=== PATIENT | female | born 1935 | race Caucasian/White ===

== ENCOUNTER 2016-12-23 18:12 | Inpatient (IN) | payer MEDICARE, BC ==
[~2016-12-23] VITALS: Ht 162.6 cm; Wt 82.0 kg
--- NOTE | 2016-12-29 08:58 | CO ---
ADMIT: 12/23/2016 RM/LOC: 520 [facility] MR#: [id number] [address] [address] ELMER ZAMBRANO [address] [place] [address] Consultation SEX: F AGE: 81 : 1935 DATE OF CONSULTATION: 12/23/2016 ATTENDING PHYSICIAN: Cecil Braden CONSULTING PHYSICIAN: Flynn Rose MD REASON FOR CONSULTATION: Right hip fracture. She also has some right foot pain. HISTORY OF PRESENT ILLNESS: The patient is an 81-year-old female, who was on a step ladder, fell, injuring her right ankle and right hip. She was seen in the Emergency Department. X-rays were taken of the right hip. She has a displaced femoral neck fracture. No x-rays done of the ankle or foot. The patient states that she has pain in the right foot, really none in the ankle. Denies any other injuries during the fall. PAST MEDICAL HISTORY: Significant for some hypothyroidism, hypertension, and history of C. diff. MEDICATIONS: Please see the medication list. ALLERGIES: TO CODEINE. SOCIAL HISTORY: The patient denies alcohol or tobacco use. Lives here in [place]. She works at the hospital as a volunteer. REVIEW OF SYSTEMS: Noncontributory. PHYSICAL EXAMINATION: HEENT, HEART, LUNGS, AND ABDOMEN: As per Dr. Smallwood's evaluation. MUSCULOSKELETAL: Examination of right lower extremity does have some shortening and external rotation of the lower extremity. Pain with any attempted range of motion of the hip. She is able to move her ankle well and wiggle her toes. Otherwise, distally neurovascularly intact. No real tenderness to palpation about the ankle but she does complain of some tenderness over the lateral aspect of the foot over the 5th metatarsal. X-RAYS: X-rays of the hip were performed, showed a displaced femoral neck fracture. Just some dvaw-kj-gzzwdkvk degenerative changes. ADMIT: 12/23/2016 RM/LOC: 520 [facility] MR#: [id number] [address] [address] ELMER ZAMBRANO [address] [place] [address] Consultation SEX: F AGE: 81 : 1935 No x-rays obtained of the foot. We will go ahead and get some of these tonight. ASSESSMENT: Right femoral neck fracture and right foot injury. No x-rays done at this time. PLAN: Plan is to take her to the operating room tomorrow for a right hip bipolar. We discussed the procedure as well as risks and benefits with the patient and family. Questions were answered and she agreed to proceed. We will get some x-rays of the foot to evaluate this further as well. Dr. Smallwood is seeing the patient for medical clearance as well. Flynn Rose MD/ tiana JOB #: [id number] CC: Cecil Braden, Attending Physician Cecil Braden, Family Physician
--- NOTE | 2016-12-29 08:58 | OR ---
ADMIT: 12/23/2016 RM/LOC: 520 [facility] MR#: [id number] [address] [address] ELMER ZAMBRANO [address] [place] [address] Operative/Delivery Room Report SEX: F AGE: 81 : 1935 SURGERY DATE: 12/24/2016 SURGEON: Flynn Rose MD PREOPERATIVE DIAGNOSES: 1. Right displaced femoral neck fracture. 2. Right foot nondisplaced fifth metatarsal fracture. POSTOPERATIVE DIAGNOSES: 1. Right displaced femoral neck fracture. 2. Right foot nondisplaced fifth metatarsal fracture. PROCEDURE: 1. Right hip bipolar hemiarthroplasty. 2. Non-operative treatment right fifth metatarsal fracture. FOOD AND BEVERAGE INTERN: MOISE Young ANESTHESIA: General. ESTIMATED BLOOD LOSS: Approximately 250 mL. COMPLICATIONS: None. CONDITION: Stable to recovery room. INDICATIONS: The patient is an 81-year-old female, who was at home yesterday on a step stool, fell injuring her right foot and right hip. She was seen in the Emergency Department. X-rays were taken of the hip. This did show a displaced femoral neck fracture. Just some ctrf-ov-cgecseti degenerative changes. She is also complaining of foot pain. I did not do x-rays in the emergency room. We did some x-rays while she was on the floor. She does appear to have a nondisplaced fifth metatarsal base fracture. Difficult to assess. I am not really sure if they got great x-rays. They do not look like they bent her knee up to get good x-rays here. There is certainly lucency located here on the lateral x-ray. We discussed her injury as well as treatment options at this point. I talked about doing a right hip bipolar. Also talked about other treatment options including nonoperative treatment options. She elected to proceed with surgical treatment this point. We discussed procedure as well as risks and benefits of right hip bipolar with her. Questions were answered. She agreed to proceed. I told her to probably treat the metatarsal fracture nonoperatively in a boot with toe-touch weightbearing here. She did understand and agreed to the treatment. DESCRIPTION OF PROCEDURE: After informed consent was obtained, the patient was taken to the operating room, placed on operative table in supine position. General anesthetic was administered. After adequate general anesthesia, the patient was placed in a left lateral decubitus position with the right hip up. The right hip was then prepped and draped in usual sterile fashion. We then ADMIT: 12/23/2016 RM/LOC: 520 [facility] MR#: [id number] [address] [place] [id number] ELMER ZAMBRANO [address] [place] [address] Operative/Delivery Room Report SEX: F AGE: 81 : 1935 made a lateral incision over the proximal femur through the skin and subcutaneous tissues. Hemostasis maintained using Bovie electrocautery. We identified the tensor fascia and IT band. We split this longitudinally. Once this was completed, a Charnley retractor was placed. We then dissected off the anterior third of the abductors using Bovie electrocautery. Once this was completed, we identified the fracture and brought the leg in flexion and external rotation bringing the fracture into the wound here. We began by using the conical reamer in the piriformis fossa followed by the canal finder. We then reamed distally to 6.7. Once this was completed, we used our neck cutting guide, measured, marked, and made our initial neck cut. We then broached the proximal femur up to a size 6 with a good press-fit noted with this. Once this was completed, calcar reamer was used to make our final femoral neck cut. The broach was then removed. Leg was brought back up on the table. Meyerding retractors were placed. A corkscrew was then used to remove the femoral head. This measured about 46 mm. We then trialed this with a 46 mm trial shell, appeared to be a good fit in the acetabulum. We then cleaned the acetabulum out. Once this was completed, leg was brought back into flexion and external rotation. We trialed this with a size six broach beginning with a +1.5 neck length and a 46 mm outer diameter bipolar shell. We reduced this, took the hip through range of motion. Good range of motion, good stability, and appeared to be good oriental orthodox of leg length and may be little bit of looseness anteriorly. We then retrialed this with a +5 neck length. This was once again a good fit, good oriental orthodox of leg length and better stability here. Once this was completed, we elected to use these components. The trial components were removed. The pulse lavage used to irrigate out the proximal femur and acetabulum. The permanent components were then opened on the back table to include a size 6 press-fit [place] basic fracture stem, a 28 mm femoral head with +5 neck length and a 46 mm outer diameter bipolar shell. Once things were cleaned and dried, we then placed the permanent size six stem into the proximal femur, impacted this into position with an excellent press-fit noted. We then placed the +5 neck length 28 mm femoral head and 46 mm outer diameter bipolar shell onto the component, impacted this into position. We then reduced the hip. Took it through range of motion once again with excellent stability and good oriental orthodox of leg length. Once this was completed, the wounds were then copiously irrigated once again. The deep capsule was injected with Exparel. Once this was completed, the anterior capsule was reapproximated using a number five Ethibond suture in a rjyvuy-yz-uoiln fashion. We then reapproximated the abductors back onto the trochanter using #5 Ethibond through bony tunnels and modified Robert-Michael stitch in the tendon edge. We then closed the split in the gluteus proximally using #1 Vicryl in a running fashion. The split in the ADMIT: 12/23/2016 RM/LOC: 520 [facility] MR#: [id number] [address] [address] ELMER ZAMBRANO [address] [place] [address] Operative/Delivery Room Report SEX: F AGE: 81 : 1935 vastus lateralis distally using #1 Vicryl in a running fashion. Once this was completed, the wound was once again copiously irrigated. Additional Exparel was injected. We then reapproximated the IT band using #1 Vicryl in a figure- of-eight fashion. The wounds were irrigated one final time. Subcutaneous tissues were injected with the remainder of the Exparel and subcutaneous tissues then closed in layers using 2-0 Vicryl in a simple interrupted fashion. Skin closed using skin lawrence. A sterile compressive dressing was applied consisting of Xeroform, plain gauze, Miko wrap, ABDs, and Medipore tape. The patient was then returned supine and transferred to recovery room in fair, but stable condition. We will also have knobs come by and placed a boot on the right lower extremity. To treat the metatarsal fracture. We will keep her toe-touch weightbearing. Flynn Rose MD/ tiana JOB #: [id number] CC: Cecil Braden, Attending Physician Cecil Braden, Family Physician
--- NOTE | 2016-12-30 08:15 | ER ---
ADMIT: 12/23/2016 RM/LOC: 520 [facility] MR#: [id number] 26[address] [facility] [address] [place], [place] [address] ELMER ZAMRBANO [address] [place] [address] Emergency Room Report SEX: F AGE: 81 : 1935 DATE: 12/23/2016 An 81-year-old lady who was on a step stool when she misstepped, fell off the stool landing on her right hip, felt a pop and sudden pain and did not strike her head, did not lose consciousness. Her called for an ambulance. She was brought to the Emergency Department with obvious shortening and external rotation of the right lower extremity. PAST MEDICAL HISTORY: Significant for hypothyroidism, chronic pain, and hypertension. SOCIAL HISTORY: Occasional alcohol use. No smoking. PHYSICAL EXAMINATION: GENERAL: Reveals an 81-year-old female, in moderate amount of distress and pain in her hip. She has no further complaints. Her right hip is tender to palpation on the anterior and lateral aspects. Her right lower extremity is shortened and externally rotated. Neurovascularly intact. LUNGS: Clear. CARDIOVASCULAR: Regular rate and rhythm. ABDOMEN: Soft. SKIN: Unremarkable. X-rays revealed a right hip fracture. Chest x-ray is unremarkable. EKG is unremarkable. CBC and CMP are pending at time of this dictation. The patient is being admitted with diagnosis of hip fracture. Keenan Grant MD/ tiana JOB #: [id number] CC: Cecil Braden DO, Attending Physician Cecil Braden DO, Family Physician
--- NOTE | 2017-01-04 16:38 | HP ---
ADMIT: 12/23/2016 RM/LOC: 520 [facility] MR#: [id number] [address] [address] [place], [place] [address] ELMER VASQUEZ [address] [place] [address] History and Physical SEX: F AGE: 81 : 1935 DATE OF SERVICE: CHIEF COMPLAINT: Status post fall. HISTORY OF PRESENT ILLNESS: Ms. Vasquez is an 81-year-old woman who presented to the ER after a fall from a step stool today. She was standing on the step stool and then fell on her right side on her right hip. She denies hitting her head or loss of consciousness. She was noted to have a right hip displaced femoral neck fracture. At present, she denies any chest pain, shortness of breath, or any GI or complaints. 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 She is able to climb one flight of stairs without any problems and usually walks 5 to 6 miles every day. PAST MEDICAL HISTORY: History of breast cancer, history of Clostridium difficile diarrhea, and hypothyroidism. ALLERGIES: TO CODEINE, HALCION, SULFA, BACITRACIN, AND KIWI FRUIT. CURRENT MEDICATIONS: Home medications include: 1. Librium 10 mg 1 to 2 tabs daily. 2. Vitamin D. 3. Synthroid 150 mcg daily. 4. Temazepam 15 mg at bedtime. 5. Hydrocodone 5/25 one to two tabs every 6 hours as needed. 6. Centrum Silver. FAMILY HISTORY: Denies any family history of heart disease, diabetes, or cancer. SOCIAL HISTORY: She lives at home with her . Denies any smoking, alcohol, or recreational drug use. REVIEW OF SYSTEMS: A 10-point review of systems negative except as mentioned in the HPI. PHYSICAL EXAMINATION: VITAL SIGNS: Current temperature 99.8, heart rate 83, respirations 16, blood pressure 156/88, and 90% on room air. GENERAL: No acute distress. HEENT: Head, normocephalic and atraumatic. Extraocular movements are intact. LYMPH: No palpable anterior/posterior cervical or supraclavicular lymphadenopathy. CHEST: Clear to auscultation bilaterally anteriorly. CARDIOVASCULAR: S1 and S2 heard. Regular rate and rhythm. ABDOMEN: Soft, nontender, and nondistended. Active bowel sounds. EXTREMITIES: No peripheral edema. MUSCULOSKELETAL: Right hip tenderness to palpation and mildly increased warmth. PSYCH: Normal affect. Memory intact. ADMIT: 12/23/2016 RM/LOC: 520 [facility] MR#: [id number] [address] [address] [place] [address] History and Physical SEX: F AGE: 81 : 1935 DATA REVIEW: CBC today shows white count of 6.5, hemoglobin 13.9, and platelets of 216. CMP shows creatinine of 0.9. Chest x-ray shows no acute disease. ASSESSMENT AND PLAN: 1. Right hip displaced femoral neck fracture. Plan is for right hip bipolar in the morning by Dr. Rose. She does not have any active cardiac contraindication for surgery. She is undergoing moderate risk surgery. We will keep her n.p.o. after midnight. Continue outpatient medications and adequate pain control. 2. Hypothyroidism. 3. History of C. difficile diarrhea. 4. History of breast cancer. She is DNR/DNI. Liat Smallwood MD/ tiana JOB #: [id number] CC: Cecil Braden, Attending Physician Cecil Braden, Family Physician
[2017-01-07] MEDS ORDERED: FEOSOL-DPS325 MG PO (11:18)
[2017-01-07] MEDS ORDERED: RESTORIL15 MG PO (11:18)
[2017-01-07] MEDS ORDERED: [UNRECOGNIZED DRUG - OTHER] PO (11:18)
[2017-01-07] MEDS ORDERED: SYNTHROID137 MCG PO (11:18)
[2017-01-07] MEDS ORDERED: VITAMIN D31000 UNIT PO ×2 (11:18→11:20)
[2017-01-07] MEDS ORDERED: ASCORBIC ACID500 MG PO (11:19)
[2017-01-07] MEDS ORDERED: THERAPEUTIC MUL1 TAB PO (11:19)
[2017-01-07] MEDS ORDERED: ULTRAM DPS50 MG PO (11:20)
[2017-01-07] MEDS ORDERED: SENOKOT S1 TAB PO (11:20)
[2017-01-07] MEDS ORDERED: MAALOX DPS30 ML PO (11:20)
[2017-01-07] MEDS ORDERED: TYLENOL DPS325 MG PO (11:20)
[2017-01-07] MEDS ORDERED: ASA325 MG PO (11:20)
--- NOTE | 2017-02-07 08:20 | DS ---
ADMIT: 12/23/2016 RM/LOC: 520 [facility] MR#: [id number] 2620 [facility] [address] [place], [place] [address] ELMER VASQUEZ [address] [place] [address] Discharge Summary SEX: F AGE: 81 : 1935 ADMISSION DATE: 12/23/2016 DISCHARGE DATE: 12/26/2016 REASON FOR HOSPITALIZATION: Fall and fracture. HISTORY: Ms. Vasquez is a pleasant 81-year-old female patient of mine, who is quite active. 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 Unfortunately, she fell onto her right side and fractured her right hip. She was subsequently admitted for further management and care. HOSPITAL COURSE: She was admitted to the hospital, given pain management, bed rest,, and prepared for surgery. Orthopedics was consulted and prepared her for the operating room where she underwent successful repair of her hip. We kept her in the hospital and monitored for an additional 48 hours and then made arrangements for her to transfer to residential for rehab. It is also noted that she has a history of recurrent C. difficile colitis. She was placed on empiric vancomycin as coverage. She was found to have a fifth metatarsal base fracture and this was immobilized, and she was placed nonweightbearing with plans to follow up with Podiatry post hospitalization. On 12/26, she was dismissed to our inpatient rehab unit, although they did not immediately have a bed. She transitioned through residential only to transfer back to inpatient rehab for followup cares. FINAL DIAGNOSIS: Right bipolar hip replacement surgery for femoral neck fracture and fifth metatarsal fracture. Cecil Braden DO/ tiana JOB #: [id number] CC: Cecil Braden DO, Attending Physician Cecil Braden DO, Family Physician
== END 2016-12-26 14:02 | DRG 470 ==
LOC: ER 18:12 → 5MS 18:50
PROVIDERS: ADMIT Internal Medicine Infectious Disease
PROC: 0SRR0JA Replacement of Right Hip Joint, Femoral Surface with Synthetic Substitute, Uncemented, Open Approach (ICD-10-PCS; principal; 2016-12-24)
DX: S72.001A Fracture of unspecified part of neck of right femur, initial encounter for closed fracture (principal); A04.7 Enterocolitis due to Clostridium difficile; I10 Essential (primary) hypertension; E03.9 Hypothyroidism, unspecified; F41.9 Anxiety disorder, unspecified; S92.354A Nondisplaced fracture of fifth metatarsal bone, right foot, initial encounter for closed fracture; G89.29 Other chronic pain; W11.XXXA Fall on and from ladder, initial encounter; Z85.3 Personal history of malignant neoplasm of breast; Z66 Do not resuscitate

== ENCOUNTER 2016-12-25 14:52 | Inpatient (IN) | payer MEDICARE, BC ==
[~2016-12-25] VITALS: Ht 162.6 cm; Wt 79.4 kg
[2016-12-29] MEDS ORDERED: SYNTHROID DPS0.15 MG PO (16:51)
[2016-12-29] MEDS ORDERED: [UNRECOGNIZED DRUG - OTHER] PO (16:51)
[2016-12-29] MEDS ORDERED: VITAMIN D PO (16:52)
[2016-12-29] MEDS ORDERED: NORCO 5-325 TA1 EACH PO (16:52)
[2016-12-29] MEDS ORDERED: RESTORIL DPS15 MG PO (16:52)
[2016-12-29] MEDS ORDERED: CENTRUM SILVER1 EAC1 PO (16:53)
[2017-01-07] MEDS ORDERED: VITAMIN D31000 UNIT PO ×2 (11:18→11:20)
[2017-01-07] MEDS ORDERED: FEOSOL-DPS325 MG PO (11:18)
[2017-01-07] MEDS ORDERED: [UNRECOGNIZED DRUG - OTHER] PO (11:18)
[2017-01-07] MEDS ORDERED: SYNTHROID137 MCG PO (11:18)
[2017-01-07] MEDS ORDERED: RESTORIL15 MG PO (11:18)
[2017-01-07] MEDS ORDERED: ASCORBIC ACID500 MG PO (11:19)
[2017-01-07] MEDS ORDERED: THERAPEUTIC MUL1 TAB PO (11:19)
[2017-01-07] MEDS ORDERED: SENOKOT S1 TAB PO (11:20)
[2017-01-07] MEDS ORDERED: ASA325 MG PO (11:20)
[2017-01-07] MEDS ORDERED: MAALOX DPS30 ML PO (11:20)
[2017-01-07] MEDS ORDERED: ULTRAM DPS50 MG PO (11:20)
[2017-01-07] MEDS ORDERED: TYLENOL DPS325 MG PO (11:20)
== END 2016-12-28 10:30 | disposition short-term general hospital (02) | DRG 561 ==
LOC: SNU 14:52
PROVIDERS: ADMIT Internal Medicine
PROC: F08Z4ZZ Home Management Treatment (ICD-10-PCS; principal; 2016-12-27)
PROC: F07M3ZZ Motor Function Treatment of Musculoskeletal System - Whole Body (ICD-10-PCS; principal; 2016-12-27)
DX: S72.001D Fracture of unspecified part of neck of right femur, subsequent encounter for closed fracture with routine healing (principal); I10 Essential (primary) hypertension; E03.9 Hypothyroidism, unspecified; Z85.3 Personal history of malignant neoplasm of breast; Z66 Do not resuscitate; Z23 Encounter for immunization

== ENCOUNTER 2016-12-28 09:58 | Inpatient (IN) | payer MEDICARE, BC ==
[~2016-12-28] VITALS: Ht 162.6 cm; Wt 78.7 kg
--- NOTE | 2016-12-28 14:30 | NUR ---
PATIENT NOTE ELMER MCNEIL" WAS ADMITTED TO [facility] SKILLED CARE ON 12/26 AND D/C TO INPATIENT REHAB UNIT AT [facility] TODAY 12/28. SHE WAS NOT UNHAPPY WITH HER CARE HERE BUT HER FIRST CHOICE WAS THE INPATIENT UNIT, THEREFORE SHE WAS TRANSFERRED WHEN THEY MADE THE DECISION TO EXCEPT HER CARE. GIANNA REMAINED MEDICARE SKILLED BASED ON OUR INTERPRETATION OF MEDICARE GUIDELINES. SHE IS A ALERT, ORIENTED AND VERY PLEASANT 81 YEAR OLD WHO DOES LIVE HERE IN [place] WITH HER MILLER. I WISHED HER WELL.
[2016-12-29] MEDS ORDERED: SYNTHROID DPS0.15 MG PO (16:51)
[2016-12-29] MEDS ORDERED: [UNRECOGNIZED DRUG - OTHER] PO (16:51)
[2016-12-29] MEDS ORDERED: RESTORIL DPS15 MG PO (16:52)
[2016-12-29] MEDS ORDERED: NORCO 5-325 TA1 EACH PO (16:52)
[2016-12-29] MEDS ORDERED: VITAMIN D PO (16:52)
[2016-12-29] MEDS ORDERED: CENTRUM SILVER1 EAC1 PO (16:53)
--- NOTE | 2017-01-05 12:55 | NUR ---
DAY SHIF SUMMARY: INDEPENDENT IN EATING. MOD INDEPENDENT IN GROOMING, SHOWERING, DRESSING,TOILETING, BOWEL AND BLADDER MANAGEMENT, TRANSFERS, AMBULATION. PT UNDERSTANDS INFO GIVEN TO HER OVER 90% OF THE TIME. IS INDEPENDENT IN EXPRESSION, SOCIAL INTERACTION, PROBLEM SOLVING AND MEMORY. USES DEVICES: NETWORK PROGRAM MANAGER, LONG SHOE HORN, SOCK AID, GRAB BARS, DEPEND PRN, BOWEL MEDS.
[2017-01-07] MEDS ORDERED: FEOSOL-DPS325 MG PO (11:18)
[2017-01-07] MEDS ORDERED: VITAMIN D31000 UNIT PO ×2 (11:18→11:20)
[2017-01-07] MEDS ORDERED: [UNRECOGNIZED DRUG - OTHER] PO (11:18)
[2017-01-07] MEDS ORDERED: SYNTHROID137 MCG PO (11:18)
[2017-01-07] MEDS ORDERED: RESTORIL15 MG PO (11:18)
[2017-01-07] MEDS ORDERED: ASCORBIC ACID500 MG PO (11:19)
[2017-01-07] MEDS ORDERED: THERAPEUTIC MUL1 TAB PO (11:19)
[2017-01-07] MEDS ORDERED: ULTRAM DPS50 MG PO (11:20)
[2017-01-07] MEDS ORDERED: MAALOX DPS30 ML PO (11:20)
[2017-01-07] MEDS ORDERED: TYLENOL DPS325 MG PO (11:20)
[2017-01-07] MEDS ORDERED: ASA325 MG PO (11:20)
[2017-01-07] MEDS ORDERED: SENOKOT S1 TAB PO (11:20)
--- NOTE | 2017-02-07 06:52 | DS ---
ADMIT: 12/28/2016 RM/LOC: 615 [facility] MR#: [id number] 2620 [facility] [address] [place], [place] [address] ELMER ZAMBRANO [address] [place] [address] General Discharge Summary SEX: F AGE: 81 : 1935 ADMISSION DATE: 12/28/2016 DISCHARGE DATE: 01/05/2017 DISCHARGE DIAGNOSES: Orthopedic disorders 08.11, status post unilateral hip fracture; S72.001S, fracture of unspecified part of neck of right femur sequela, onset 12/23/2016; comorbid conditions per initial H and P. Other diagnoses per hospital course below. HOSPITAL COURSE: Please see my initial H and P for details prior to transfer to the IRU. Pain and bowel regimen adjusted. Nucynta and gabapentin for pain. Aspirin decreased to 81 mg. Synthroid timing adjusted. Suppository, Senokot-S adjusted. Right lower extremity venous ultrasound due to asymmetric swelling and increased pain that was negative for DVT. Polypharmacy addressed with discontinuing Benadryl, Compazine, hydrocodone, Surfak, milk of magnesia, Flexeril. Tylenol was scheduled for pain. Lab was monitored regularly. Dietitian followed to optimize nutrition. Pharmacy followed to optimize medication management. Decision for DNR/DNI on 12/28/2016. Aspirin had been decreased due to starting Lovenox, first dose now and then every 24 hours on admission. Rapid strep screen done for sore throat, that came back positive. Dr. Braden started on Omnicef. Thyroid function checked on. PVR was normal. Due to risk of C. diff, Omnicef was changed to Zithromax. Culturelle was added. Protonix switched to Pepcid to decrease risk of C. difficile. EdemaWear used for peripheral edema. Feosol and vitamin C for iron deficiency. Librium and Restoril tapered to discontinuation. Tylenol and gabapentin adjusted for pain as well as for insomnia. Nucynta switched to OxyIR for pain. Cepacol sore throat lozenges ordered, p.o. vancomycin for C. difficile continued through 01/06/2017. Low air loss mattress ordered for patient. Pepcid adjusted. Synthroid decreased due to some iatrogenic hyperthyroidism. Precautions for right lower extremity clarified. Walking boot to be worn at all times. May remove to shower. OxyIR switched to tramadol for pain. Tylenol adjusted. The patient was medically stable at the time of discharge. Please see IRU interdisciplinary discharge summary for details regarding ADMIT: 12/28/2016 RM/LOC: 615 [facility] MR#: [id number] [address] [place] [address] [place] [address] General Discharge Summary SEX: F AGE: 81 : 1935 progress in therapy. DISCHARGE DISPOSITION: Home with . Home exercise program. No outpatient or home health therapy, has equipment needed for home. to provide transport. DISCHARGE MEDICATIONS: 1. Feosol and vitamin C for 1 month. 2. PO vancomycin was stopped on discharge. 3. Lovenox was stopped on discharge. 4. She was put on aspirin 325 mg p.o. daily. 5. Ultram was given #30 with three refills. FOLLOWUP: Dr. Rose on 01/08/2017. Dr. Braden in 2 weeks. Ferny Craig MD/ tiana JOB #: [id number] CC:
== END 2017-01-05 12:30 | disposition home or self-care (01) | DRG 560 ==
LOC: 6IRU 10:40
PROVIDERS: ADMIT Physical Medicine & Rehabilitation
PROC: F08Z0FZ Bathing/Showering Techniques Treatment using Assistive, Adaptive, Supportive or Protective Equipment (ICD-10-PCS; principal; 2016-12-28)
PROC: F08Z1FZ Dressing Techniques Treatment using Assistive, Adaptive, Supportive or Protective Equipment (ICD-10-PCS; principal; 2016-12-28)
PROC: F07Z9FZ Gait Training/Functional Ambulation Treatment using Assistive, Adaptive, Supportive or Protective Equipment (ICD-10-PCS; principal; 2016-12-28)
PROC: F07Z5FZ Bed Mobility Treatment using Assistive, Adaptive, Supportive or Protective Equipment (ICD-10-PCS; principal; 2016-12-28)
PROC: F08Z2FZ Grooming/Personal Hygiene Treatment using Assistive, Adaptive, Supportive or Protective Equipment (ICD-10-PCS; principal; 2016-12-28)
DX: S72.001D Fracture of unspecified part of neck of right femur, subsequent encounter for closed fracture with routine healing (principal); A04.7 Enterocolitis due to Clostridium difficile; D62 Acute posthemorrhagic anemia; J02.0 Streptococcal pharyngitis; G89.18 Other acute postprocedural pain; E55.9 Vitamin D deficiency, unspecified; G47.00 Insomnia, unspecified; R41.0 Disorientation, unspecified; E03.9 Hypothyroidism, unspecified; R60.0 Localized edema; E05.80 Other thyrotoxicosis without thyrotoxic crisis or storm; T38.1X5A Adverse effect of thyroid hormones and substitutes, initial encounter; Y92.239 Unspecified place in hospital as the place of occurrence of the external cause; Z66 Do not resuscitate; Z23 Encounter for immunization; Z87.891 Personal history of nicotine dependence